=== PATIENT | male | born 1985 | race Caucasian/White ===

== ENCOUNTER 2018-04-25 17:04 | Emergency (ER) | payer OTHER ==
[~2018-04-25] VITALS: Ht 177.8 cm; Wt 82.3 kg
[2018-04-25] MEDS ORDERED: KEFLEX500 MG PO (19:59)
[2018-04-25] MEDS ORDERED: PREDNISONE5 M1 PO (20:27)
[2018-04-25 20:58] VITALS: BP 129/81
== END 2018-04-25 20:58 | disposition home or self-care (01) ==
LOC: EME 17:04
PROC: 3E0234Z Introduction of Serum, Toxoid and Vaccine into Muscle, Percutaneous Approach (ICD-10-PCS; principal; 2018-04-25)
DX: S61.032A Puncture wound without foreign body of left thumb without damage to nail, initial encounter (principal); W29.8XXA Contact with other powered hand tools and household machinery, initial encounter; Y99.0 Civilian activity done for income or pay; Z23 Encounter for immunization; L23.7 Allergic contact dermatitis due to plants, except food; F17.200 Nicotine dependence, unspecified, uncomplicated
CPT/HCPCS: 73140; 99281; 99284